=== PATIENT | female | born 1995 | race Caucasian/White ===

== ENCOUNTER 2021-12-25 07:45 | Emergency (ER) | payer OTHER ==
[~2021-12-25] VITALS: Ht 172.7 cm; Wt 90.7 kg
[2021-12-25 08:27] LABS: HEMOGLOBIN 12.4 gm/dl (12.3-15.3); RED BLOOD COUNT 4.98 M/UL (4.00-5.10)
[2021-12-25 08:44] LABS: BUN/CREATININE RATIO 16 (0-10)
[2021-12-25] MEDS ORDERED: CLEOCIN HCL300 MG PO (11:41)
[2021-12-25] MEDS ORDERED: IBUPROFEN600 MG PO (11:41)
[2021-12-25] MEDS ORDERED: MEDROL DOSEPAK 24 MG PO (11:41)
== END 2021-12-25 11:54 | disposition home or self-care (01) ==
LOC: ER1 07:45
PROVIDERS: Physician Assistant Medical
DX: J03.90 Acute tonsillitis, unspecified (principal); I10 Essential (primary) hypertension
CPT/HCPCS: 70491; 80053; 83605; 85025; 87040; 96374; 96375; 99283; J1100; J1885; Q9967